=== PATIENT | male | born 1975 | race Caucasian/White ===

== ENCOUNTER 2018-01-21 08:27 | Emergency (ER) | payer SELFPAY ==
[~2018-01-21] VITALS: Ht 165.1 cm; Wt 79.0 kg
[2018-01-21] MEDS ORDERED: VISCOUS LIDOCAINE 2% 15 ML UDC PO STA (09:26)
[2018-01-21] MEDS ORDERED: MAGNESIUM/ALUMINUM HYDROXIDE/SIMETHICONE 30ML UDC PO STA (09:26)
[2018-01-21] MEDS ORDERED: SODIUM CHLORIDE 0.9% 1,000 ML IV ONE (09:30)
[2018-01-21] MEDS ORDERED: FAMOTIDINE 20MG/2ML VIAL IV ONE (09:30)
[2018-01-21] MEDS ORDERED: DICYCLOMINE HCL 10MG CAPSULE PO ONE (09:30)
[2018-01-21 09:40] LABS: BASOPHILS % 0.8 % (0.0-2.0); EOSINOPHILS % 5.8 % (0.0-5.0); HEMATOCRIT. 50.2 % (42.0-52.0); HEMOGLOBIN. 17.4 g/dL (14.0-18.0); LYMPHOCYTES % 26.3 % (20.0-50.0); MEAN CORPUSCULAR VOLUME 86.5 fL (80.0-94.0); MEAN PLATELET VOLUME 8.3 fl (7.4-10.4); MONOCYTES % 8.5 % (2.0-8.0); NEUTROPHILS % 58.6 % (40.0-76.0); PLATELET 255 x1000/uL (130-400); RED CELL DISTRIBUTION WIDTH 14.3 % (11.6-14.6)
[2018-01-21 09:42] LABS: CHLORIDE 104 mEq/L (98-107)
[2018-01-21 09:46] LABS: ETHANOL BLOOD < 10 mg/dL
[2018-01-21 09:49] VITALS: BP 149/89
[2018-01-21] MEDS: ONDANSETRON HCL 4MG/2ML VIAL IV STA ×2 (09:51→10:05)
== END 2018-01-21 12:37 | disposition home or self-care (01) ==
LOC: ER 09:12
DX: K29.70 Gastritis, unspecified, without bleeding (principal); F17.200 Nicotine dependence, unspecified, uncomplicated
CPT/HCPCS: 36415; 80053; 83690; 85025; 93005; 96361; 96374; 96375; 99285; G0482; J2405; J3490; J7030; Z7610